=== PATIENT | male | born 1970 | race Two or more races ===

== ENCOUNTER 2024-08-28 09:06 | Emergency (ER) | payer MEDICAID, OTHER ==
[~2024-08-28] VITALS: Ht 167.6 cm; Wt 80.0 kg
--- NOTE | 2024-08-28 09:40 | ED.PDOC ---
HPI Comments 54 y.o male presents to the ED for a chief complaint of right sided chest pain radiating to his right arm that started one month ago. Patient describes pain as sharp, constant, and has no alleviating factors. Patient was seen at urgent care today, had an EKG done which showed abnormalities and was sent to the ED for high level of care. Patient denies any nausea, vomiting, diarrhea ,fever, chills, leg swelling or SOB. Chief Complaint: Chest Pain Time Seen by MD: 09:15 Primary Care Provider: unknown Reviewed Notes: Nurses Notes, Medications, Allergies Allergies: Coded Allergies: NO KNOWN ALLERGIES (Unverified , 08/28/24) Information Source: Patient Mode of Arrival: Ambulatory Severity: Moderate Timing: Months (1) Duration: Since onset Location: Chest (R) Radiation: Arm (R) Quality: Sharp Onset: At Rest Cardiac Risk Factors: Diabetes PE Risk Factors: None History of: None Modifying Factors: Nothing Associated Signs and Symptoms: None Past Medical History PAST MEDICAL HISTORY: DM Surgical History: Denies all surgeries Family History Family History: Reviewed,noncontributory to illness Social History Smoker: Non-Smoker Alcohol: Denies ETOH Use Drugs: Denies Drug Use Lives In: Home Constitutional: denies: chills, diaphoresis, fatigue, fever, malaise, sweats, weakness, others EENTM: denies: blurred vision, double vision, ear bleeding, ear discharge, ear drainage, ear pain, ear ringing, eye pain, eye redness, hearing loss, mouth pain, mouth swelling, nasal discharge, nose bleeding, nose congestion, nose pain, photophobia, tearing, throat pain, throat swelling, voice changes, others Respiratory: denies: cough, hemoptysis, orthopnea, SOB at rest, shortness of breath, SOB with excertion, stridor, wheezing, others Cardiovascular: reports: chest pain, others (right arm pain ); denies: dizzy spells, diaphoresis, Dyspnea on exertion, edema, irregular heart beat, left arm pain, lightheadedness, palpitations, PND, syncope Gastrointestinal: denies: abdomen distended, abdominal pain, blood streaked bowels, constipated, diarrhea, dysphagia, difficulty swallowing, hematemesis, melena, nausea, poor appetite, poor fluid intake, rectal bleeding, rectal pain, vomiting, others Genitourinary: denies: burning, dysuria, flank pain, frequency, hematuria, incontinence, penile discharge, penile sore, pain, testicle pain, testicle swelling, urgency, others Neurological: denies: dizziness, fainting, headache, left sided numbness, left sided weakness, numbness, paresthesia, pre-existing deficit, right sided numbness, right sided weakness, seizure, speech problems, tingling, tremors, weakness, others Musculoskeletal: denies: back pain, gout, joint pain, joint swelling, muscle pain, muscle stiffness, neck pain, others Integumetry: denies: bruises, change in color, change in hair/nails, dryness, laceration, lesions, lumps, rash, wounds, others Allergic/Immunocompromised: denies: Difficulty Healing, Frequent Infections, Hives, Itching, others Hematologic/Lymphatic: denies: anemia, blood clots, easy bleeding, easy bruising, swollen glands, others Endocrine: denies: excessive hunger, excessive sweating, excessive thirst, excessive urination, flushing, intolerance to cold, intolerance to heat, unexplained weight gain, unexplained weight loss, others Psychiatric: denies: anxiety, bipolar disorder, depression, hopeless, panic disorder, schizophrenia, sleepless, suicidal, others All Other Systems: Reviewed and Negative Physical Exam General Appearance: Moderate Distress HEENT: Normal ENT Inspection, Pharynx Normal, TMs Normal Neck: Full Range of Motion, Non-Tender, Normal, Normal Inspection Respiratory: Chest Non-Tender, Lungs Clear, No Accessory Muscle Use, No Respiratory Distress, Normal Breath Sounds Cardiovascular: No Edema, No JVD, No Murmur, No Gallop, Normal Peripheral Pulses, Regular Rate/Rhythm Breast Exam: Deferred Gastrointestinal: No Organomegaly, Non Tender, No Pulsatile Mass, Normal Bowel Sounds, Soft Genitalia: Deferred Pelvic: Deferred Rectal: Deferred Extremities: No calf tenderness, Normal capillary refill, Normal inspection, Normal range of motion, Non-tender, No pedal edema Musculoskeletal : Apperance: Normal Neurologic: Alert, [employer] worker II-XII nml as Tested, No Motor Deficits, Normal Affect, Normal Mood, No Sensory Deficits Cerebellar Function: Normal Reflexes: Normal Skin: Dry, Normal Color, Warm Peripheral Pulses: 3+ Radial (R), 3+ Radial (L) Lymphatic: No Adenopathy EKG EKG : Pulse Rate (adult): 63 Cardiac Rhythm: NSR Was a procedure done? Was a procedure done?: No CP Differential Dx Differential Diagnosis: A-fib, A-Flutter, Angina, Anxiety / Panic Attack, Atr ial Dysrhythmia, Electrolyte Disorder, N/A Differential Diagnosis: Angina, Chest Wall Pain, Costochondritis, Esophageal reflux/spasm, Pericarditis X-Ray, Labs, Meds, VS Vital Signs Date Time Temp Pulse Resp B/P (MAP) Pulse Ox O2 Delivery O2 Flow Rate FiO2 08/28/24 09:40 63 08/28/24 09:16 97.9 63 16 124/71 (88) 97 97.9 08/28/24 09:13 63 Lab Test 08/28/24 09:21 Range/Units Troponin I High Sensitivity Pending Patient alert. Complaining of chest pain. EKG reviewed does show some changes. Vitals stable. Initially seen at urgent care. Was given aspirin. Was given nitro. Possible stress test. Echocardiogram. Reviewed his history. Explained to the patient. Continue monitoring. Time of 1ST Reevaluation: 09:37 Reevaluation 1ST: Unchanged Patient Education/Counseling: Diagnosis, Treatment, Prognosis Family Education/Counseling: No Family Present Departure 1 Departure Time of Disposition: 09:48 Impression: Primary Impression: Chest pain of unknown etiology Disposition: ADMITTED INPATIENT Admit to: Med Surg Condition: Guarded Critical Care Note Critical Care Time?: No Stability Stability form required: No Heart Score Heart Score: Heart Score Response (Comments) Value History Slightly Suspicious 0 EKG Normal 0 Age 45-64 1 Risk Factors 1 or 2 risk factors 1 Troponin Normal limit 0 Total 2 I personally scribed for MARTI TRAORE MD ([email or web address]) on 08/28/24 at 09:40. Electronically submitted by Rosey Haywood ([email or web address]). MARTI TRAORE MD Aug 28, 2024 09:40
[2024-08-28 10:41] LABS: Basophils # (auto) 0 10 ^3/uL (0-0.2); Basophils % (auto) 0.6 % (0.0-2.0); Eosinophils # (auto) 0.1 10 ^3/uL (0-0.8); Lymphocytes # (auto) 1.8 10 ^3/uL (0.4-5.4); Mean Corpuscular Hgb Conc. 35.1 g/dL (32.0-36.0); Monocytes # (auto) 0.3 10 ^3/uL (0-1.3); Nucleated Red Blood Cells % 0.2 %; Red Cell Distribution Width 13.4 % (11.8-14.3)
[2024-08-28 10:46] LABS: Eosinophils % (auto) 0.9 % (0.0-7.0); Hematocrit 49.4 % (41.0-53.0); Hemoglobin 17.3 g/dL (13.5-17.5); Lymphocytes % (auto) 32.2 % (10.0-50.0); Mean Corpuscular Hemoglobin 30.1 pg (28.0-32.0); Mean Corpuscular Volume 85.8 fL (80.0-100.0); Monocytes % (auto) 4.6 % (0.0-12.0); Neutrophils # (auto) 3.5 10 ^3/uL (1.6-8.6); Neutrophils % (auto) 61.7 % (37.0-80.0); Platelet Count (auto) 202 10^3/uL (140-450); Red Blood Cells 5.75 10^6/uL (4.5-5.90); White Blood Cell 5.7 10^3/uL (4.4-10.8)
[2024-08-28 11:00] VITALS: BP 127/87; PULSE 62; RESP 16; TEMP 98.7; O2SAT 95
[2024-08-28] MEDS: NITROGLYCERIN 0.4 MG SL TAB SL ONE (11:01)
[2024-08-28] MEDS: ASPirin 325 MG TAB PO ONE (11:03)
[2024-08-28 13:21] LABS: Chloride 106 mmol/L (98-107); Potassium 4.7 mmol/L (3.5-5.1)
[2024-08-28 13:22] LABS: Anion Gap 8 (5-15)
[2024-08-28 13:23] LABS: Calcium 9.7 mg/dL (8.7-10.4)
[2024-08-28 13:27] LABS: Carbon Dioxide 19 mmol/L (20-31); Sodium 133 mmol/L (136-145)
[2024-08-28 13:28] LABS: BUN/Creatinine Ratio 11.4 (10.0-20.0); Blood Urea Nitrogen 10 mg/dL (9-23)
[2024-08-28 13:30] LABS: Glucose 372 mg/dL (74-106)
--- NOTE | 2024-08-29 10:12 | ECG ---
[facility] Test Date: 2024-08-28 Test Time: 09:13:16 Pat Name: MANA GREENE Department: ER Room: Gender: M Stack Matcher: : 1970 Requested By: MARTI TRAORE Order Number: [id number] Reading MD: Farrukh Enrique Measurements Intervals Cool Rate: 63 P: 47 CA: 161 QRS: 77 QRSD: 107 T: 71 QT: 387 QTc: 397 Interpretive Statements Sinus rhythm Nonspecific T abnormalities, anterior leads Electronically Signed On 08-30-2024 13:05:58 PDT by Farrukh Enrique Please click the below link to view image of tracing.
[2024-08-29] MEDS ORDERED: ACET-1079 PO (10:58)
[2024-08-29] MEDS ORDERED: METF-490 PO (10:58)
[2024-08-29] MEDS ORDERED: IBUP1TAB4 PO (10:58)
[2024-08-29] MEDS ORDERED: SITA100T7 PO (10:58)
[2024-08-29] MEDS ORDERED: INSUINJ37 SC (10:58)
== END 2024-08-28 13:02 | disposition left against medical advice (07) ==
LOC: ER 09:06
DX: R07.9 Chest pain, unspecified (principal); M79.601 Pain in right arm; E11.9 Type 2 diabetes mellitus without complications
CPT/HCPCS: 36415; 80048; 83880; 84484; 85025; 93005

== ENCOUNTER 2024-08-28 17:16 | Inpatient (IN) | payer MEDICAID ==
[~2024-08-28] VITALS: Ht 162.6 cm; Wt 77.4 kg
--- NOTE | 2024-08-28 17:31 | ED.PDOC ---
History of Present Illness HPI Comments 54 y/o M, with a history of DM, presents with c/o nonradiating, right-sided chest pain, today. Patient is a Greek speaker and reports returning to the ED after leaving against medical advice, initially, after his chest pain, that he has been having for 1x month, resolved on its own, temporarily, before ret urning, again, this afternoon. He rates pain a 5/10 in severity. Patient endorses no recent strenuous activities, stressors, sick contact, injuries, or additional significant past medical, surgical, or family history. He denies any palpitations, shortness of breath, arm pain, nausea, vomiting, fever, chills, or other associated symptoms or modifying factors at this time. Time Seen by MD: 17:20 Primary Care Provider: unknown Reviewed Notes: Nurses Notes, Medications, Allergies Allergies: Coded Allergies: NO KNOWN ALLERGIES (Unverified , 08/28/24) Information Source: Patient Past Medical History PAST MEDICAL HISTORY: DM Surgical History: Denies all surgeries Family History Family History: Reviewed,noncontributory to illness Social History Smoker: Non-Smoker Alcohol: Denies ETOH Use Drugs: Denies Drug Use Lives In: Home Constitutional: denies: chills, diaphoresis, fatigue, fever, malaise, sweats, weakness, others EENTM: denies: blurred vision, double vision, ear bleeding, ear discharge, ear drainage, ear pain, ear ringing, eye pain, eye redness, hearing loss, mouth pain, mouth swelling, nasal discharge, nose bleeding, nose congestion, nose pain, photophobia, tearing, throat pain, throat swelling, voice changes, others Respiratory: denies: cough, hemoptysis, orthopnea, SOB at rest, shortness of breath, SOB with excertion, stridor, wheezing, others Cardiovascular: reports: chest pain; denies: dizzy spells, diaphoresis, Dyspnea on exertion, edema, irregular heart beat, left arm pain, lightheadedness, palpitations, PND, syncope, others Gastrointestinal: denies: abdomen distended, abdominal pain, blood streaked bowels, constipated, diarrhea, dysphagia, difficulty swallowing, hematemesis, melena, nausea, poor appetite, poor fluid intake, rectal bleeding, rectal pain, vomiting, others Genitourinary: denies: burning, dysuria, flank pain, frequency, hematuria, incontinence, penile discharge, penile sore, pain, testicle pain, testicle swelling, urgency, others Neurological: denies: dizziness, fainting, headache, left sided numbness, left sided weakness, numbness, paresthesia, pre-existing deficit, right sided numbness, right sided weakness, seizure, speech problems, tingling, tremors, weakness, others Musculoskeletal: denies: back pain, gout, joint pain, joint swelling, muscle pain, muscle stiffness, neck pain, others Integumetry: denies: bruises, change in color, change in hair/nails, dryness, laceration, lesions, lumps, rash, wounds, others Allergic/Immunocompromised: denies: Difficulty Healing, Frequent Infections, Hives, Itching, others Hematologic/Lymphatic: denies: anemia, blood clots, easy bleeding, easy bruising, swollen glands, others Endocrine: denies: excessive hunger, excessive sweating, excessive thirst, excessive urination, flushing, intolerance to cold, intolerance to heat, unexplained weight gain, unexplained weight loss, others Psychiatric: denies: anxiety, bipolar disorder, depression, hopeless, panic disorder, schizophrenia, sleepless, suicidal, others All Other Systems: Reviewed and Negative Physical Exam General Appearance: Moderate Distress HEENT: Normal ENT Inspection, Pharynx Normal, TMs Normal Neck: Full Range of Motion, Non-Tender, Normal, Normal Inspection Respiratory: Chest Non-Tender, Lungs Clear, No Accessory Muscle Use, No Respiratory Distress, Normal Breath Sounds Cardiovascular: No Edema, No JVD, No Murmur, No Gallop, Normal Peripheral Pulses, Regular Rate/Rhythm Breast Exam: Deferred Gastrointestinal: No Organomegaly, Non Tender, No Pulsatile Mass, Normal Bowel Sounds, Soft Genitalia: Deferred Pelvic: Deferred Rectal: Deferred Extremities: No calf tenderness, Normal capillary refill, Normal inspection, Normal range of motion, Non-tender, No pedal edema Musculoskeletal : Apperance: Normal Neurologic: Alert, aesthetician II-XII nml as Tested, No Motor Deficits, Normal Affect, Normal Mood, No Sensory Deficits Cerebellar Function: Normal Reflexes: Normal Skin: Dry, Normal Color, Warm Lymphatic: No Adenopathy Was a procedure done? Was a procedure done?: No EKG EKG : Pulse Rate (adult): 75 [place]: Normal Cardiac Rhythm: NSR Block: None Hypertrophy: LAE, LVH ST: Normal Differential Dx Considerations may include: GA, PE, ACS, URI, PNA, anxiety, angina, costochondritis, pericarditis, gastritis, among others X-Ray, Labs, Meds, VS Vital Signs Date Time Temp Pulse Resp B/P (MAP) Pulse Ox O2 Delivery O2 Flow Rate FiO2 08/28/24 17:31 98.0 82 18 106/71 (83) 96 98.0 08/28/24 17:31 75 Lab Test 08/28/24 17:35 Range/Units White Blood Count 7.9 # 4.4-10.8 10^3/uL Red Blood Count 5.44 4.5-5.90 10^6/uL Hemoglobin 16.5 13.5-17.5 g/dL Hematocrit 47.2 41.0-53.0 % Mean Corpuscular Volume 86.7 80.0-100.0 fL Mean Corpuscular Hemoglobin 30.3 28.0-32.0 pg Mean Corpuscular Hemoglobin Concent 34.9 32.0-36.0 g/dL Red Cell Distribution Width 13.3 11.8-14.3 % Platelet Count 186 140-450 10^3/uL Mean Platelet Volume 8.2 6.9-10.8 fL Neutrophils (%) (Auto) 70.2 37.0-80.0 % Lymphocytes (%) (Auto) 24.1 10.0-50.0 % Monocytes (%) (Auto) 4.2 0.0-12.0 % Eosinophils (%) (Auto) 0.9 0.0-7.0 % Basophils (%) (Auto) 0.6 0.0-2.0 % Neutrophils # (Auto) 5.6 1.6-8.6 10 ^3/uL Lymphocytes # (Auto) 1.9 0.4-5.4 10 ^3/uL Monocytes # (Auto) 0.3 0-1.3 10 ^3/uL Eosinophils # (Auto) 0.1 0-0.8 10 ^3/uL Basophils # (Auto) 0 0-0.2 10 ^3/uL Nucleated Red Blood Cells 0.1 % Sodium Level 135 L 136-145 mmol/L Potassium Level 4.6 3.5-5.1 mmol/L Chloride Level 104 98-107 mmol/L Carbon Dioxide Level 22 20-31 mmol/L Anion Gap 9 5-15 Blood Urea Nitrogen 22 # 9-23 mg/dL Creatinine 0.88 0.700-1.30 mg/dL Glomerular Filtration Rate Calc 101 >90 mL/min BUN/Creatinine Ratio 25.0 H 10.0-20.0 Serum Glucose 425 *H 74-106 mg/dL Calcium Level 9.6 8.7-10.4 mg/dL Troponin I High Sensitivity 6 </=54 ng/L The CBC is within normal limits The chemistry panel is within normal limits. The troponin level is negative The patient was still having some persistent chest pain The patient was blood sugar came back at 425 The patient was being given a normal saline bolus We are giving the patient insulin IV push at 5 units The patient was being admitted to the hospitalist The patient understands and agrees with the management A cardiology consult will be obtained. Images Reviewed?: Images reviewed and evaluated by me Time of 1ST Reevaluation: 17:50 Reevaluation 1ST: Unchanged Patient Education/Counseling: Diagnosis, Treatment, Prognosis Family Education/Counseling: No Family Present Departure 1 Departure Time of Disposition: 18:25 Impression: Primary Impression: Acute chest pain Additional Impressions: Acute myocardial ischemia Uncontrolled diabetes mellitus Qualified Codes: E13.65 - Other specified diabetes mellitus with hyperglycemia Disposition: ADMITTED INPATIENT Admit to: [facility] Condition: Fair Critical Care Note Critical Care Time?: No Stability Stability form required: Yes Unstable for transfer: Telemetry monitoring (Telemetry monitoring required), ED Physician Assesment (Clinical assesment) Heart Score Heart Score: Heart Score Response (Comments) Value History Moderate Suspicious 1 EKG Normal 0 Age 45-64 1 Risk Factors No known risk factors 0 Troponin Normal limit 0 Total 2 I personally scribed for CHEYANNE ABDI MD ([email or web address]) on 08/28/24 at 17:31. Electronically submitted by Mamadou Reardon ([email or web address]). I personally scribed for CHEYANNE ABDI MD ([email or web address]) on 08/28/24 at 17:34. Electronically submitted by Mamadou Reardon ([email or web address]). CEHYANNE ABDI MD Aug 28, 2024 17:31
[2024-08-28 17:58] LABS: Chloride 104 mmol/L (98-107); Potassium 4.6 mmol/L (3.5-5.1)
[2024-08-28 17:59] LABS: Anion Gap 9 (5-15); Calcium 9.6 mg/dL (8.7-10.4); Carbon Dioxide 22 mmol/L (20-31)
[2024-08-28 18:01] LABS: Basophils # (auto) 0 10 ^3/uL (0-0.2); Basophils % (auto) 0.6 % (0.0-2.0); Eosinophils # (auto) 0.1 10 ^3/uL (0-0.8); Eosinophils % (auto) 0.9 % (0.0-7.0); Hematocrit 47.2 % (41.0-53.0); Hemoglobin 16.5 g/dL (13.5-17.5); Lymphocytes # (auto) 1.9 10 ^3/uL (0.4-5.4); Lymphocytes % (auto) 24.1 % (10.0-50.0); Mean Corpuscular Hemoglobin 30.3 pg (28.0-32.0); Mean Corpuscular Hgb Conc. 34.9 g/dL (32.0-36.0); Mean Corpuscular Volume 86.7 fL (80.0-100.0); Monocytes # (auto) 0.3 10 ^3/uL (0-1.3); Monocytes % (auto) 4.2 % (0.0-12.0); Neutrophils # (auto) 5.6 10 ^3/uL (1.6-8.6); Neutrophils % (auto) 70.2 % (37.0-80.0); Nucleated Red Blood Cells % 0.1 %; Platelet Count (auto) 186 10^3/uL (140-450); Red Blood Cells 5.44 10^6/uL (4.5-5.90); Red Cell Distribution Width 13.3 % (11.8-14.3); White Blood Cell 7.9 10^3/uL (4.4-10.8)
[2024-08-28 18:04] LABS: Blood Urea Nitrogen 22 mg/dL (9-23)
[2024-08-28 18:10] LABS: Sodium 135 mmol/L (136-145)
[2024-08-28 18:11] LABS: Glucose 425 mg/dL (74-106)
--- NOTE | 2024-08-28 18:20 | DVH ---
EXAM: XY CHEST TWO VIEWS ROUTINE CLINICAL HISTORY: cp COMPARISON: None TECHNIQUE: Frontal and lateral view of the chest was obtained FINDINGS: Lines and Tubes: None Lungs: No focal consolidation. Pleura: No effusion. No pneumothorax. Cardiomediastinal contours: Unremarkable Bones: No acute osseous abnormality. IMPRESSION: No acute cardiopulmonary disease.
[2024-08-28] MEDS: SODIUM CHLORIDE 0.9% 1,000 ML IVB ONE (20:16)
[2024-08-28 20:17] VITALS: PULSE 89; RESP 19; O2SAT 97
[2024-08-28] MEDS: InsuLIN REG 1unit/0.01ml Soln (100units/ml) IV ONE (20:30)
--- NOTE | 2024-08-28 22:16 | DVHHPRES ---
History of Present Illness Resident Creating Document: RUSTY SCHULZ RESIDENT History of Present Illness Mr Monson 54-year-old male with past medical history of diabetes mellitus who does not follow up physician, presented to the ER with a chief complaint of chest pain for the past month. Patient reports sharp stabbing right to mid sternal chest pain for the past 1 month which is intermittent, no radiation, unrelated to exertion, increases with lifting of his right arm above 90 and with pulling or pushing movements with his right arm. Denies any trauma or fall. Denies any nausea or diaphoresis. Patient denies shortness of breath, palpitations. He reports taking insulin and metformin for his diabetes which he gets from his friends. He does not have a PCP. Past medical history: Diabetes mellitus Social history: Denies smoking, drinking or illicit drug use Home medications: Insulin and metformin On arrival to the ER, patient was actually stable, CBC WNL, platelets 186. Troponin WNL. Serum glucose was 425 on arrival. HGB A1c, moderate ISS ordered. Past Surgical History: None Family History: None Smoke: No ALCOHOL: none Drugs: None Lives: with Family Review of Systems Constitutional: Yes: Weakness Cardiovascular: Chest Pain Musculoskeletal: shoulder pain, arm pain Allergies: Coded Allergies: NO KNOWN ALLERGIES (Unverified , 08/28/24) Exam Vital Signs Vital Signs Date Time Temp Pulse Resp B/P (MAP) Pulse Ox O2 Delivery O2 Flow Rate FiO2 08/28/24 20:17 97.9 89 17 111/79 (90) 97 97.9 08/28/24 20:17 Room Air* 0 21 Exam Patient lying in bed, in no acute distress General: Overweight, afebrile, palor, mucosae are moist Cardiovascular: Palpable chest wall tenderness. Regular S1 and S2. No murmurs, gallops or rubs. No JVD elevation. No pedal edema Respiratory: Normal B/L air entry on room air. Clear lung sounds on auscultation Abdomen: Soft, nontender, nondistended, normoactive bowel sounds, no rebound tenderness, no organomegaly, no masses Genitourinary: Deferred MSK/skin: Mobilizes 4 limbs. Skin is dry and warm. Pain on abduction of the right arm above 90 Neurological: No motor, no sensitive deficits, normal speech. Pupils are isocoric and reactive. Psych/Mental Status: A/Ox3 Labs/Xrays Labs Test 4/21/25 20:56 08/28/24 20:01 08/28/24 17:35 Range/Units Troponin I High Sensitivity 33 </=54 ng/L POC Glucose 308 H 70-106 mg/dl White Blood Count 7.9 # 4.4-10.8 10^3/uL Red Blood Count 5.44 4.5-5.90 10^6/uL Hemoglobin 16.5 13.5-17.5 g/dL Hematocrit 47.2 41.0-53.0 % Mean Corpuscular Volume 86.7 80.0-100.0 fL Mean Corpuscular Hemoglobin 30.3 28.0-32.0 pg Mean Corpuscular Hemoglobin Concent 34.9 32.0-36.0 g/dL Red Cell Distribution Width 13.3 11.8-14.3 % Platelet Count 186 140-450 10^3/uL Mean Platelet Volume 8.2 6.9-10.8 fL Neutrophils (%) (Auto) 70.2 37.0-80.0 % Lymphocytes (%) (Auto) 24.1 10.0-50.0 % Monocytes (%) (Auto) 4.2 0.0-12.0 % Eosinophils (%) (Auto) 0.9 0.0-7.0 % Basophils (%) (Auto) 0.6 0.0-2.0 % Neutrophils # (Auto) 5.6 1.6-8.6 10 ^3/uL Lymphocytes # (Auto) 1.9 0.4-5.4 10 ^3/uL Monocytes # (Auto) 0.3 0-1.3 10 ^3/uL Eosinophils # (Auto) 0.1 0-0.8 10 ^3/uL Basophils # (Auto) 0 0-0.2 10 ^3/uL Nucleated Red Blood Cells 0.1 % Sodium Level 135 L 136-145 mmol/L Potassium Level 4.6 3.5-5.1 mmol/L Chloride Level 104 98-107 mmol/L Carbon Dioxide Level 22 20-31 mmol/L Anion Gap 9 5-15 Blood Urea Nitrogen 22 # 9-23 mg/dL Creatinine 0.88 0.700-1.30 mg/dL Glomerular Filtration Rate Calc 101 >90 mL/min BUN/Creatinine Ratio 25.0 H 10.0-20.0 Serum Glucose 425 *H 74-106 mg/dL Calcium Level 9.6 8.7-10.4 mg/dL Assessment/Plan Assessment/Plan Atypical chest pain, likely costochondritis Right shoulder pain, likely rotator cuff tendinitis Uncontrolled diabetes mellitus-hemoglobin A1c pending Noncompliance Plan: Troponin WNL, EKG NSR Right shoulder x-ray pending Follow up with the HbA1c, ordered moderate ISS, Lantus 15 units SC daily Follow up with urine microalbumin visitor services information assistant consulted for PCP Diet: Consistent carbohydrate Lovenox 40 mg sc daily Pantoprazole 40 mg p.o. once Plan discussed with patient in ER along the nurse in which all questions have been answered Goals of care discussed for more than 27 minutes, full code status Case discussed with Dr. Isaac Plan discussed with: Patient My Orders Orders - RUSTY SCHULZ Procedure Category Date Status Time Admit ADMIT 08/28/24 Verified 22:15 Date of Service: Aug 28, 2024 Billing Provider: JESSICA ISAAC MD Common Visit Codes: [id number] INP/OBS CARE (HIGH) RUSTY SCHULZ Aug 28, 2024 22:16 JESSICA ISAAC MD Aug 29, 2024 21:13
[2024-08-28 23:47] VITALS: BP 101/68; PULSE 53; PULSE 54; RESP 16; TEMP 97.5; O2SAT 100
[2024-08-29] VITALS (8 sets, daily range): BP systolic 99–111; BP diastolic 53–68; PULSE 54–62; RESP 14–16; TEMP 97.5–98.1; O2SAT 96–100
[2024-08-29] MEDS ORDERED: DEXTROSE (50%) 50ML SYRG IV PRN (00:45)
[2024-08-29] MEDS: PANTOPRAZOLE 40 MG/10 ML VIAL INJ IV ONE (01:36)
[2024-08-29 05:02] LABS: Basophils # (auto) 0 10 ^3/uL (0-0.2); Basophils % (auto) 0.6 % (0.0-2.0); Eosinophils # (auto) 0.1 10 ^3/uL (0-0.8); Eosinophils % (auto) 1.5 % (0.0-7.0); Hematocrit 42.7 % (41.0-53.0); Hemoglobin 15.1 g/dL (13.5-17.5); Lymphocytes # (auto) 2.3 10 ^3/uL (0.4-5.4); Lymphocytes % (auto) 42.3 % (10.0-50.0); Mean Corpuscular Hemoglobin 30.2 pg (28.0-32.0); Mean Corpuscular Hgb Conc. 35.3 g/dL (32.0-36.0); Mean Corpuscular Volume 85.6 fL (80.0-100.0); Monocytes # (auto) 0.3 10 ^3/uL (0-1.3); Monocytes % (auto) 5.2 % (0.0-12.0); Neutrophils # (auto) 2.8 10 ^3/uL (1.6-8.6); Neutrophils % (auto) 50.4 % (37.0-80.0); Platelet Count (auto) 171 10^3/uL (140-450); Red Blood Cells 4.99 10^6/uL (4.5-5.90); Red Cell Distribution Width 13.5 % (11.8-14.3); White Blood Cell 5.5 10^3/uL (4.4-10.8)
[2024-08-29 05:17] LABS: INR 1.01 (0.9-1.15); Partial Thromboplastin Time 24.5 SEC (24.5-34.5); Prothrombin Time 10.7 sec (9.3-11.8)
[2024-08-29 05:23] LABS: Alanine Aminotransferase 19 U/L (7-40); Albumin 3.8 g/dL (3.2-4.8); Alkaline Phosphatase 87 U/L (46-116); Anion Gap 7 (5-15); BUN/Creatinine Ratio 22.7 (10.0-20.0); Blood Urea Nitrogen 15 mg/dL (9-23); CRP High Sensitivity 0.09 mg/dL (<1.0); Calcium 8.9 mg/dL (8.7-10.4); Carbon Dioxide 23 mmol/L (20-31); Chloride 106 mmol/L (98-107); Potassium 3.7 mmol/L (3.5-5.1); Sodium 136 mmol/L (136-145)
[2024-08-29 05:24] LABS: Bilirubin, Direct 0.2 mg/dL (<0.3); Bilirubin, Total 0.9 mg/dL (0.2-1.0)
--- NOTE | 2024-08-29 05:24 | DVH ---
CLINICAL INDICATION: rotator cuff tendonitis TECHNIQUE: XY R SHOULDER 2+ VIEW XRAY Comparison: None FINDINGS/IMPRESSION: : Age indeterminate mildly displaced fractures likely chronic of the right 7th and 8th posterior ribs. [id number] degenerative changes of the shoulder joint. Degenerative subchondral cystic change a t the lateral aspect of the proximal humeral head. No joint dislocation.
[2024-08-29 05:25] LABS: Aspartate Aminotransferase 12 U/L (13-40); Glucose 252 mg/dL (74-106)
[2024-08-29 05:42] LABS: Erythrocyte Sedimentation Rate 3 mm/hr (0-20)
[2024-08-29] MEDS: InsuLIN REG 1unit/0.01ml Soln (100units/ml) SC SCH (05:58)
[2024-08-29] MEDS: ACCU-CHEK COMFORT CURVE STRIP VI SCH (05:58)
[2024-08-29] MEDS: IPRATROPIUM BROM 0.5 MG/2.5ML INH SOL NEB SCH (07:54)
[2024-08-29] MEDS: ERGOCALCIFEROL 50,000 UNIT(1.25MG) CAP PO SCH (08:48)
[2024-08-29] MEDS: INSULIN LANTUS (GLARGINE) 1 /0.01ml (100units/ml) SC SCH (10:00)
--- NOTE | 2024-08-29 10:20 | ECG ---
[facility] Test Date: 2024-08-28 Test Time: 17:27:20 Pat Name: MANA GREENE Department: ER Room: [address] [place] [address] Gender: M Corporate Legal Assistant: MYRON : 1970 Requested By: CHEYANNE ABDI Order Number: [id number] Reading MD: Farrukh Enrique Measurements Intervals Gray Rate: 79 P: 30 UT: 158 QRS: 42 QRSD: 97 T: 112 QT: 368 QTc: 422 Interpretive Statements Sinus rhythm Consider left atrial enlargement LVH with secondary repolarization abnormality Baseline wander in lead(s) V2 Electronically Signed On 08-30-2024 13:08:34 PDT by Farrukh Enrique Please click the below link to view image of tracing.
[2024-08-29] MEDS: ENOXAPARIN SOD 40 MG/0.4 ML SYRINGE SC SCH (10:54)
[2024-08-29] MEDS ORDERED: METF-490 PO (10:58)
[2024-08-29] MEDS ORDERED: SITA100T7 PO (10:58)
[2024-08-29] MEDS ORDERED: IBUP1TAB4 PO (10:58)
[2024-08-29] MEDS ORDERED: ACET-1079 PO (10:58)
[2024-08-29] MEDS ORDERED: INSUINJ37 SC (10:58)
[2024-08-29] MEDS: KETOROLAC TROMETH 30 MG/ML 1ML VIAL IV ONE (11:10)
[2024-08-29] MEDS: ACETAMINOPHEN 325 MG TAB PO SCH (14:00)
--- NOTE | 2024-08-29 15:55 | DVHDSRES ---
Discharge Summary Date of Admission Resident Creating Document: RUSTY SCHULZ Aug 28, 2024 at 22:15 Date of Discharge: Aug 29, 2024 Admitting Diagnosis Uncontrolled diabetes Labs/Diagnostic Data: PATIENT: KOURTNEY REYNOLDST: [id number] UNIT: [id number] : 1970 LOC: OVERFLOW ROOM / BED: [address] [place] [address] / AGE / SEX: 54 / M ADM STATUS: ADM IN SERVICE [id number] ORDERING PHYSICIAN: RUSTY SCHULZ PROCEDURE(s): RSHD2 - R SHOULDER 2+ VIEW XRAY REASON: ?rotator cuff tendonitis? ORDER NUMBER(s): [id number], ACCESSION NUMBER(s): [id number] CLINICAL INDICATION: rotator cuff tendonitis TECHNIQUE: XY R SHOULDER 2+ VIEW XRAY Comparison: None FINDINGS/IMPRESSION: : Age indeterminate mildly displaced fractures likely chronic of the right 7th and 8th posterior ribs. Fxdu-am-kigybodn degenerative changes of the shoulder joint. Degenerative subchondral cystic change at the lateral aspect of the proximal humeral head. No joint dislocation. ATED BY: WINSTON MOHAN MD DICTATED DATE/TIME: 08/29/24 0521 PATIENT: KOURTNEY REYNOLDST: [id number] UNIT: [id number] : 1970 LOC: ER ROOM / BED: / AGE / SEX: 54 / M ADM STATUS: REG ER SERVICE 1729 ORDERING PHYSICIAN: CHEYANNE ABDI MD PROCEDURE(s): CXR2 - CHEST TWO VIEWS ROUTINE REASON: cp ORDER NUMBER(s): [id number], ACCESSION NUMBER(s): [id number] EXAM: XY CHEST TWO VIEWS ROUTINE CLINICAL HISTORY: cp COMPARISON: None TECHNIQUE: Frontal and lateral view of the chest was obtained FINDINGS: Lines and Tubes: None Lungs: No focal consolidation. Pleura: No effusion. No pneumothorax. Cardiomediastinal contours: Unremarkable Bones: No acute osseous abnormality. IMPRESSION: No acute cardiopulmonary disease. ATED BY: ANGEL ABEL MD DICTATED DATE/TIME: 08/28/24 1818 Laboratory Results Test 08/29/24 10:33 08/29/24 04:22 08/28/24 20:56 POC Glucose 342 mg/dl (70-106) White Blood Count 5.5 10^3/uL (4.4-10.8) Red Blood Count 4.99 10^6/uL (4.5-5.90) Hemoglobin 15.1 g/dL (13.5-17.5) Hematocrit 42.7 % (41.0-53.0) Mean Corpuscular Volume 85.6 fL (80.0-100.0) Mean Corpuscular Hemoglobin 30.2 pg (28.0-32.0) Mean Corpuscular Hemoglobin Concent 35.3 g/dL (32.0-36.0) Red Cell Distribution Width 13.5 % (11.8-14.3) Platelet Count 171 10^3/uL (140-450) Mean Platelet Volume 7.7 fL (6.9-10.8) Neutrophils (%) (Auto) 50.4 % (37.0-80.0) Lymphocytes (%) (Auto) 42.3 % (10.0-50.0) Monocytes (%) (Auto) 5.2 % (0.0-12.0) Eosinophils (%) (Auto) 1.5 % (0.0-7.0) Basophils (%) (Auto) 0.6 % (0.0-2.0) Neutrophils # (Auto) 2.8 10 ^3/uL (1.6-8.6) Lymphocytes # (Auto) 2.3 10 ^3/uL (0.4-5.4) Monocytes # (Auto) 0.3 10 ^3/uL (0-1.3) Eosinophils # (Auto) 0.1 10 ^3/uL (0-0.8) Basophils # (Auto) 0 10 ^3/uL (0-0.2) Nucleated Red Blood Cells 0.0 % Erythrocyte Sedimentation Rate 3 mm/hr (0-20) Prothrombin Time 10.7 sec (9.3-11.8) Prothrombin Time INR 1.01 (0.9-1.15) Activated Partial Thromboplast Time 24.5 SEC (24.5-34.5) Sodium Level 136 mmol/L (136-145) Potassium Level 3.7 mmol/L (3.5-5.1) Chloride Level 106 mmol/L (98-107) Carbon Dioxide Level 23 mmol/L (20-31) Anion Gap 7 (5-15) Blood Urea Nitrogen 15 mg/dL (9-23) Creatinine 0.66 mg/dL (0.700-1.30) Glomerular Filtration Rate Calc 110 mL/min (>90) BUN/Creatinine Ratio 22.7 (10.0-20.0) Serum Glucose 252 mg/dL (74-106) Hemoglobin A1c 12.4 % A1C (<5.7) Calcium Level 8.9 mg/dL (8.7-10.4) Magnesium Level 2.0 mg/dL (1.6-2.6) Total Bilirubin 0.9 mg/dL (0.2-1.0) Direct Bilirubin 0.2 mg/dL (<0.3) Aspartate Amino Transferase (AST) 12 U/L (13-40) Alanine Aminotransferase (ALT) 19 U/L (7-40) Alkaline Phosphatase 87 U/L (46-116) C-Reactive Protein High Sensitivity 0.09 mg/dL (<1.0) Total Protein 6.0 g/dL (5.7-8.2) Albumin 3.8 g/dL (3.2-4.8) Vitamin B12 Level 744 pg/mL (211-911) Vitamin D 25-Hydroxy 28.9 ng/mL (30.0-100) Thyroid Stimulating Hormone (TSH) 1.18 uIU/mL (0.55-4.78) Troponin I High Sensitivity 33 ng/L (</=54) Other Laboratory Tests 08/29/24 04:22 Brief Hx & Hospital Course: History of Present Illness Mr Monson 54-year-old male with past medical history of diabetes mellitus who does not follow up physician, presented to the ER with a chief complaint of chest pain for the past month. Patient reports sharp stabbing right to mid sternal chest pain for the past 1 month which is intermittent, no radiation, unrelated to exertion, increases with lifting of his right arm above 90 and with pulling or pushing movements with his right arm. Denies any trauma or fall. Denies any nausea or diaphoresis. Patient denies shortness of breath, palpitations. He reports taking insulin and metformin for his diabetes which he gets from his friends. He does not have a PCP. Past medical history: Diabetes mellitus Social history: Denies smoking, drinking or illicit drug use Home medications: Insulin and metformin Past Surgical History: None Family History: None History: Denies alcohol use denied drug use lives with his son. Brief hospital course On arrival to the ER, patient was actually stable, CBC WNL, platelets 186. Troponin WNL. Serum glucose was 425 on arrival. HGB A1c12. For financial reasons, patient has not seen a physician in a very long time. His A1C was 12.4.12 lead EKG shows normal sinus rhythm. Chest x-ray showed no acute cardiopulmonary disease. X-ray of the right shoulder Age indeterminate mildly displaced fractures likely chronic of the right 7th and 8th posterior ribs.Bhey-on-gjamdkah degenerative changes of the shoulder joint. Degenerative subchondral cystic change at the lateral aspect of the proximal humeral head. Patient is overall stable. He is not in DKA. No anion gap noted. Thus will send patient home on insulin and advice him to follow up at the dischargee clinic in 7 days to reassess. Review of systems Constitutional: Denies fever no chills no feeling of malaise HEENT: Denies headache, ear pain, ear discharges, conjunctivitis, nasal discharge throat pain Cardiovascular: Denies chest pain, palpitation, orthopnea, PND, or pedal edema Respiratory: Denies shortness of breath, cough cough, sputum production, hemoptysis, GI: Denies abdominal pain, nausea, vomiting, diarrhea, hematemesis, hematochezia, : Denies frequency, urgency, hematuria, Endocrine: Denies unintentional weight gain or weight loss, feeling of hot flashes, Dmitry: Denies easy bruising, bleeding disorders, epistaxis Musculoskeletal: Denies joint pains, muscle aches Psych: No evidence of depression, mitchell, suicidal ideation Examination General Appearance: Alert, Oriented X3, Cooperative, No acute distress HEENT: Atraumatic, PERRLA, EOMI, Mucous membrane moist/pink Respiratory: Clear to auscultation, Normal air movement Cardiovascular: Regular rate, Normal S1, Normal S2, No murmurs, no chest wall tenderness Abdominal: NO distention, no tenderness, bowel sounds present, no scars noted Extremities: No clubbing, No cyanosis, No edema, Normal pulses, No tenderness/swelling Skin: No rashes, No breakdown, No significant lesion Neuro: Normal gait, Normal speech, Strength at 5/5 X4 ext, Normal tone, Sensation intact, Cranial nerves 3-12 NL, Reflexes 2+ Psych/Mental Status: Mental status NL, Mood NL Assessment/Plan Atypical chest pain, likely costochondritis Right shoulder pain, likely rotator cuff tendinitis Uncontrolled diabetes mellitus-hemoglobin A1c pending Noncompliance Discharge Plan: Discharge home in good condition Sent ave insulin one month supply Follow up at the discharge clinic in 7 days Diet: Consistent carbohydrate, Diabetic diet Discussed with Dr. Gustafson Condition at Discharge: Stable Final Diagnosis/Problems List Atypical chest pain, likely costochondritis Right shoulder pain, likely rotator cuff tendinitis Uncontrolled diabetes mellitus-hemoglobin A1c pending Noncompliance Plan: Troponin WNL, EKG NSR Right shoulder x-ray pending Follow up with the HbA1c, ordered moderate ISS, Lantus 15 units SC daily Follow up with urine microalbumin enrollment services dean consulted for PCP Diet: Consistent carbohydrate Lovenox 40 mg sc daily Pantoprazole 40 mg p.o. once Discharge Disposition: Home Discharge Statement: "Patient was advised to return to the ER or call 911 if any headaches, dizziness, shortness of breath, chest pain, abdominal pain, bleeding, fevers, or worsening of medical condition. Patient was counseled about treatment plan, medications, possible side effects, patientverbalized understanding. All questions were answered to the best of my ability. This discharge took greater then 30 minutes in planning, reviewing documentation, counseling the patient, and discussing with other team members." ASSESSMENT ASSESSMENT Assessment Date of Service: Aug 29, 2024 Billing Provider: DEWAYNE GUSTAFSON MD Common Visit Codes: 11420-XYO/OBS DISCH DAY >30min INDRA DARLING RESIDENT Aug 29, 2024 15:55 DEWAYNE GUSTAFSON MD Aug 30, 2024 22:29
[2024-08-29] MEDS ORDERED: InsuLIN REG 1unit/0.01ml Soln (100units/ml) SC SCH (22:00)
[2024-08-30 11:46] LABS: Hepatitis B Surface Antigen Negative (Negative); Hepatitis C Antibody Negative (Negative)
== END 2024-08-29 18:53 | disposition home or self-care (01) | DRG 203 ==
LOC: ER 17:16 → OVERFLOW 22:15
PROVIDERS: ADMIT Student in an Organized Health Care Education/Training Program; ATTEND Emergency Medicine
DX: M94.0 Chondrocostal junction syndrome [Tietze] (principal); E11.65 Type 2 diabetes mellitus with hyperglycemia; M77.8 Other enthesopathies, not elsewhere classified; Z91.199 Patient's noncompliance with other medical treatment and regimen due to unspecified reason
CPT/HCPCS: 36415; 71046; 73030; 80048; 80053; 80076; 82306; 82607; 82962; 83036; 83735; 84443; 84484; 85025; 85610; 85652; 85730; 86141; 86803; 87340; 93005; 94640; 96361; 96374; G0378; J1815; J1885; J2470